=== PATIENT | male | born 1940 | race Caucasian/White ===

== ENCOUNTER 2024-05-20 15:07 | Inpatient (IN) | payer OTHER ==
[~2024-05-20] VITALS: Ht 172.7 cm; Wt 78.0 kg
[2024-05-20] MEDS ORDERED: Aspir 8181 MG PO (15:09)
[2024-05-20] MEDS ORDERED: Dose Adjust by Pharmacy XX STA (15:14)
[2024-05-20] MEDS ORDERED: Heparin Sodium,Porcine/0.5 NS 500 ML IV SCH (15:15)
[2024-05-20 15:30] VITALS: BP 123/90
[2024-05-20] MEDS ORDERED: AMLO5 PO ×2 (15:33→15:39)
[2024-05-20] MEDS ORDERED: Crestor40 MG PO (15:38)
[2024-05-20] MEDS ORDERED: LISI20 PO (15:38)
[2024-05-20] MEDS ORDERED: ROSUVASTATIN CA20 MG PO (15:40)
[2024-05-20] MEDS ORDERED: Metoprolol Tartrate 1 MG/ML 5 ML VIAL IV STA (15:48)
[2024-05-20] MEDS ORDERED: Acetaminophen 325 MG TABLET PO PRN (15:50)
[2024-05-20] MEDS ORDERED: FLU VACC TS2024-25(6MOS UP)/PF 45 MCG/0.5 ML SYRINGE IM SCH (15:50)
[2024-05-20] MEDS ORDERED: Ondansetron HCl 2 MG / ML 2ML Vial IV PRN (15:50)
[2024-05-20] MEDS ORDERED: NS 1,000 ML IV SCH (15:55)
[2024-05-20] MEDS ORDERED: Metoprolol Succinate 50 MG TABCR PO SCH (17:00)
[2024-05-20 17:05] VITALS: BP 132/98
[2024-05-20 17:15] LABS: Anti-Xa UFH, PHA Monitoring 0.65 IU/mL
[2024-05-20] MEDS ORDERED: Metoprolol Tartrate 25 MG Tab PO SCH ×2 (18:00→19:00)
[2024-05-20 19:12] VITALS: BP 94/67
--- NOTE | 2024-05-20 20:06 | NUR ---
CALLED CARDIOLOGY- PT HR REMAINS 130'S ON TELE AFIB. SBP IS 94. SPOKE TO DR HENRY AND HE ORDERED A 150 MG BOLUS OF IV AMIODORONE WELL AN AMIODORONE DRIP. THIS REQUIRES TRANSFER TO PCU. SPOKE TO RUG DYER AND PT IS GOING TO TRANSFER TO PCU 19.
[2024-05-20 20:51] LABS: Adenovirus F 40/41 Not Detected (NOT DETECT); Astrovirus Not Detected (NOT DETECT); Campylobacter Sp Not Detected (NOT DETECT); Cryptosporidium Not Detected (NOT DETECT); Cyclospora Cayetanensis Not Detected (NOT DETECT); E. Coli O157 Not Detected (NOT DETECT); Entamoeba Histolytica Not Detected (NOT DETECT); Enteroaggregative E. coli-EAEC Not Detected (NOT DETECT); Enteropathogenic E. coli-EPEC Not Detected (NOT DETECT); Enterotoxigenic E. coli-ETEC Not Detected (NOT DETECT); Giardia Lamblia Not Detected (NOT DETECT); Norovirus GI/GII Not Detected (NOT DETECT); Plesiomonas Shigelloides Not Detected (NOT DETECT); Rotavirus A Not Detected (NOT DETECT); Salmonella Sp Not Detected (NOT DETECT); Sapovirus Not Detected (NOT DETECT); Shiga Toxin-prod E. coli-STEC Not Detected (NOT DETECT); Shigella/Enteroin E. coli-EIEC Not Detected (NOT DETECT); Vibrio Cholerae Not Detected (NOT DETECT); Vibrio Sp Not Detected (NOT DETECT); Yersinia Enterocolitica Not Detected (NOT DETECT)
--- NOTE | 2024-05-20 21:00 | NUR ---
TRANSFER REPORT RECEIVED FROM MEDICAL FLOOR RN. PATIENT TRANSFERRED TO PCU 19. ARRIVES TO PCU ROOM WITH HEPARIN GTT INFUSING PER ORDER. FLUIDS BROUGHT WITH PATIENT. AMIO BOLUS AND THEN GTT INITIATED PER EMAR. ALERT AND ORIENTED x4. BP STABLE. PATIENT ON 3-4L NC, SPO2 LOW TO MID 90s. DENIES OXYGEN USE AT HOME. TELE AFIB 100-120s. REPORTING NAUSEA AND ABDOMINAL PAIN ON ARRIVAL, PER REPORT PATIENT MEDICATED PRIOR TO TRANSFER. GI PANEL COLLECTED AND PENDING. PATIENT ORIENTED TO PCU ROOM.
[2024-05-20] MEDS ORDERED: Metoclopramide HCl 5MG / ML 2ML Vial IV PRN ×2 (21:20)
[2024-05-20 23:39] VITALS: BP 101/69
[2024-05-20] MEDS ORDERED: Clarify Drug Order XX ONE (23:55)
[2024-05-21] VITALS (9 sets, daily range): BP systolic 95–123; BP diastolic 55–86
--- NOTE | 2024-05-21 | NUR ---
UPDATE RESIDENT MADE AWARE OF PATIENT'S CDIFF+ LAB RESULTS. PATIENT STATED THAT ABDOMINAL PAIN AND NAUSEA HAS SUBSIDED SINCE MEDICATION ADMINISTRATION BUT REPORTS THAT HE HAS HAD DIARRHEA "FOR DAYS" PRIOR TO BEING SEEN IN [place]. NO NEW ORDERS PER RESIDENT D/T CDIFF TOXIN LAB PENDING AT THIS TIME.
[2024-05-21 04:05] LABS: Hematocrit 35.7 % (37.0-53.0); Hemoglobin 12.3 g/dL (13.5-17.5); Mean Corpuscular HGB 31.5 pg (26.0-34.0); Mean Corpuscular HGB Conc 34.5 g/dL (31.5-36.5); Mean Corpuscular Volume 92 fL (80-100); Mean Platelet Volume 10.9 fL (9.1-12.4); Platelet Count 115 K/mm3 (150-400); RDW Coefficient Variation 12.9 % (11.7-14.2); RDW Standard Deviation 42.4 fL (35.1-46.3); White Blood Cell Count 8.76 K/mm3 (4.00-11.30)
[2024-05-21 04:19] LABS: Bun/Creatinine Ratio 31.4 (12.0-20.0); Calcium, Blood 7.8 mg/dL (8.5-10.1); Creatinine, Blood 1.37 mg/dL (0.60-1.20); Potassium, Blood 4.5 mmol/L (3.5-5.5)
--- NOTE | 2024-05-21 05:24 | NUR ---
SHIFT SUMMARY PATIENT ALERT, ORIENTED x4. ABLE TO MAKE NEEDS KNOWN TO STAFF. BP STABLE. TELE READING AFIB 100s. AMIO GTT INFUSING PER EMAR. ON 3-4L NC WITH SPO2 LOW TO MID 90s. PATIENT AMBULATING TO BATHROOM WITH MINIMAL ASSISTANCE. NO DIARRHEA SINCE TRANSFER TO PCU. NO OTHER CHANGES SINCE PREVIOUS NOTES, WILL REPORT TO DAY SHIFT RN.
[2024-05-21] MEDS ORDERED: Clarify Drug Order XX ONE (05:45)
[2024-05-21] MEDS ORDERED: Lisinopril 20 MG Tab PO SCH (09:00)
[2024-05-21] MEDS ORDERED: Rosuvastatin Calcium 10 MG Tab PO SCH (09:00)
[2024-05-21] MEDS ORDERED: Aspirin 81 MG TabEC PO SCH (09:00)
[2024-05-21] MEDS ORDERED: Apixaban 5 MG Tab PO SCH (10:35)
--- NOTE | 2024-05-21 13:02 | NUR ---
DR. BATES NOTIFIED OF PT CONVERTING FROM AFIB TO SR. HE WILL SEE THE PT SOON.
[2024-05-21] MEDS ORDERED: Amiodarone HCl 200 MG Tab PO SCH (13:15)
[2024-05-21] MEDS ORDERED: Furosemide 10 MG/ML 4ML Vial IV STA (15:04)
--- NOTE | 2024-05-21 17:07 | NUR ---
END OF SHIFT SUMMARY THE PT IS A&OX4, IND WITH TRANSFER BUT NEEDS ASSISTANCE WITH LINE MANAGEMENT, AND HE MAKES HIS NEEDS KNOWN. THE PT WAS ON AN AMIO GTT THIS MORNING AND AN ADDITIONAL BOLUS WAS GIVEN PER DR. BATES, THE PT ENDED UP CONVERTING TO SR 70'S AROUND [address] FIGUEREDO STARTED THE PT ON PO AMIO. * AMIO 400MG BID X 5 DAYS THEN 2OOMG DAILY AFTER. * HIS HEPARIN WAS DISCONTINUED THIS MORNING AND HE WAS STARTED ON ELIQUIS 5MG BID. * THE PT WILL NEED TO STOP HIS ELIQUIS 05/26 (5 DAYS BEFORE TAVR/CABG) * *AT DISCHARGE THE PT WILL RESUME HIS HOME ZESTRIL AND START 1OMG JARDIANCE DAILY PER DR. BATES* BP REMAINS STABLE. THE PT DENIES SOB, BUT IS REQUIRING OXYGEN TO MAINTAIN SP02 >93%. HE HAS BEEN TITRATED TODAY BETWEEN 1L NC AND 6LNC. WHILE THE PT SLEEPS HE HAS BEEN REQUIRING 4-6L'S NC. THIS AFTERNOON THIS RN AMBULATED THE PT AROUND THE FLOOR AND HE NEEDED 2L NC TO MAINTIAN SP02 >93%. AFTER THE WALK HE WAS VERY TIRED AND HAS BEEN TAKING A NAP. HIS SISTER AND VISITED AND WERE UPDATED ON CARE. COLLECTIVE BARGAINING SPECIALIST HAS CLEARED THE PT FOR DISCHARGE; DR. BRANDAN LEON. ECHO COMPLETED. SEE NOTES FOR UPDATES.
[2024-05-21] MEDS ORDERED: Lactobacil 2-S.Thermo-Bifido 1 1 Cap PO SCH (21:00)
[2024-05-22 00:37] VITALS: BP 132/70
[2024-05-22 03:52] VITALS: BP 112/62
[2024-05-22 04:16] LABS: Hematocrit 35.9 % (37.0-53.0); Hemoglobin 12.5 g/dL (13.5-17.5); Mean Platelet Volume 11.4 fL (9.1-12.4); Platelet Count 130 K/mm3 (150-400)
--- NOTE | 2024-05-22 04:24 | NUR ---
SHIFT SUMMARY PT REMAINS A/0X4. VSS ON 5L NC >92%. UNABLE TO TITRATE DOWN THROUGHOUT NIGHT. PT HAD X1 LIQUID BROWN BM. CONTINUES TO HAVE CONSTANT NAUSEA, PRNs GIVEN WITH MODERATE RELIEF. PT HAS ABDOMINAL PAIN DESCRIBED ACHING. PRN TYLENOL AND MORE REGLAN GIVEN AT THAT TIME WITH GOOD RELIEF. PT AMBULATING TO BATHROOM WITH SBA. NO FURTHER QUESTIONS OR CONCERNS AT THIS TIME. WILL CONTINUE WITH PLAN OF CARE.
[2024-05-22 04:32] LABS: Bun/Creatinine Ratio 42.6 (12.0-20.0); Calcium, Blood 8.2 mg/dL (8.5-10.1); Creatinine, Blood 1.01 mg/dL (0.60-1.20); Potassium, Blood 3.9 mmol/L (3.5-5.5)
[2024-05-22 07:41] VITALS: BP 124/69
[2024-05-22] MEDS ORDERED: Vancomycin HCl 125 MG Cap PO SCH (10:00)
[2024-05-22 11:54] VITALS: BP 127/65
[2024-05-22 16:30] VITALS: BP 128/69
[2024-05-22] MEDS ORDERED: Potassium Chloride 10 Meq Tablet SA PO SCH (17:00)
[2024-05-22] MEDS ORDERED: Furosemide 10 MG/ML 4ML Vial IV SCH (18:00)
--- NOTE | 2024-05-22 18:41 | NUR ---
SHIFT SUMMARY: NEURO: PT A&OX4. FOLLOWS COMMANDS AND MAKES NEEDS KNOWN TO STAFF. CARDIAC: NO ACUTE CHANGES HAPPENED DURING SHIFT. DENIES ANY CP, PRESSURE OR TIGHTNESS. RESP: PT ON 5L NC, MAINTAINING O2 SATS >90%. REPORTS SOB WITH EXERTION. GI/: PT REPORTS FEELING NAUSIOUS OFF AND ON TODAY THAT WAS MOSTLY RESOLVED WITH REGLAN. PT EXPRESSED THIS AFTERNOON THAT HIS NAUSEA INCREASES WITH MOVEMENT, LOOKING AROUND AND WITH ACTIVITY. PT ALSO REPORTED A SLIGHT HEADACHE. PROVIDER NOTIFIED AND NO NEW ORDERS WERE GIVEN. NO SIGNIFICANT EVENTS HAPPENED DURING THIS SHIFT. WILL CONTINUE TO CARE FOR PT TILL END OF SHIFT.
[2024-05-22 19:45] VITALS: BP 113/95
--- NOTE | 2024-05-22 22:43 | NUR ---
PT REMAINS A&OX4. VSS ON 5L NC >92%. NO SOB AT REST HOWEVER BECOMES TACHYPNEIC UPON EXERTION. REMAINS ON TELE NSR 70s-80s. PT HAS NO C/O PAIN AT THIS TIME. CONTINUES TO HAVE LOOSE STOOLS. PO VANCO CONTINUED PER EMAR. PT HAS NO NAUSEA AT THIS TIME. PT USING CALL LIGHT APPROPRIATELY. SBA TO BATHROOM. PT TRANSFERRING TO MEDICAL UNIT FOR FURTHER CARE. REPORT GIVEN TO NURSE DALEY.
[2024-05-23] VITALS (7 sets, daily range): BP systolic 100–140; BP diastolic 63–81
[2024-05-23 05:53] LABS: Hematocrit 36.5 % (37.0-53.0); Hemoglobin 12.7 g/dL (13.5-17.5); Mean Corpuscular HGB 31.4 pg (26.0-34.0); Mean Corpuscular HGB Conc 34.8 g/dL (31.5-36.5); Mean Corpuscular Volume 90 fL (80-100); Mean Platelet Volume 10.8 fL (9.1-12.4); Platelet Count 144 K/mm3 (150-400); RDW Coefficient Variation 12.9 % (11.7-14.2); RDW Standard Deviation 42.3 fL (35.1-46.3); Red Blood Cell Count 4.05 M/mm3 (4.30-5.90); White Blood Cell Count 8.45 K/mm3 (4.00-11.30)
--- NOTE | 2024-05-23 06:33 | NUR ---
SHIFT SUMMARY PT ADMITTED FOR NEW ONSET AFIB. PT IS ALERT AND ORIENTED TIMES 4. PT IS INDEPENDENT AND ABLE TO AMBULATE AROUND ROOM AND TO TOILET. PT IS ABLE TO MAKE NEEDS KNOWN TO STAFF. 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 PT IS ON 7L O2. PT IS NOT ON OXYGEN ASSIST WHILE AT HOME. PT HAS LOWER RIGHT EXTREMITY SKIN TEAR FROM GOLF. PT TAKES MEDS WHOLE WITH WATER AND IS ON A CARDIO DIET. PT IS SCHEDULED FOR CABBAGE AND TVAR PROCEDURE 05/31/24. PT WILL NEED TO STOP TAKING ELIQUIS ON 05/26/24 PRIOR TO PROCEDURE. PT HAS EJECTION FACTION OF 40-45%. PT S BED IS IN LOW POSITION, CALL LIGHT WITHIN REACH, AND RAILS ARE TIMES 3.
[2024-05-23 07:20] LABS: Bun/Creatinine Ratio 39.3 (12.0-20.0); Calcium, Blood 8.3 mg/dL (8.5-10.1); Creatinine, Blood 0.97 mg/dL (0.60-1.20); Potassium, Blood 3.8 mmol/L (3.5-5.5)
[2024-05-23] MEDS ORDERED: Digoxin 0.25 MG/ML 2ML Amp IV ONE (09:10)
[2024-05-23] MEDS ORDERED: Digoxin 0.5 MG in NS 8 ML IV ONE (09:25)
[2024-05-23] MEDS ORDERED: NS 250 ML IV PRN (11:50)
[2024-05-23] MEDS ORDERED: Digoxin 0.25 MG/ML 2ML Amp IV SCH (15:00)
[2024-05-23] MEDS ORDERED: Digoxin 0.25 MG in NS 4 ML IV SCH (16:00)
--- NOTE | 2024-05-23 18:05 | NUR ---
SHIFT SUMMARY PT CONT LEVEL OF CARE. PT NOTED TO CONVERT TO AFIB WITH RVR AROUND 0840 THIS SHIFT. PT DENIED CHEST PAIN, SOB, OR FEELINGS OF HEART RACING. CARDIOLOGY WAS CALLED AND GAVE ORDERS. SEE MAR FOR DETAILS. TELE CALLED THIS NURSE AROUND 1300 THIS SHIFT AND STATED THAT PT HAD CONVERTED BACK TO SR HR 81. CARDIOLOGY WAS CALLED AGAIN AND DC THE ORDERS FOR DIGOXIN. PT WAS TITRATED DOWN FROM 7L THIS SHIFT TO 2L WITH O2 MAINTAINING IN LOW 90S. DSG CHANGE DONE TO RLE THIS SHIFT PER ORDERS. PLAN IS FOR PT TO POSSIBLE GO HOME TOMORROW PENING IF HE STAYS IN SR.
--- NOTE | 2024-05-24 03:41 | NUR ---
FISH EGG PACKER SUMMARY VSS. ALERT AND ORINETED. COOPERATIVE WITH CARE. UP AD SURENDRA. ABLE TO REPOSITION SELF IN BED WITHOUT ASSIST FOR COMFORT. MED TELE SR WITH BBB IN THE 70'S. DENIED DISTRESS WHEN ASKED. HAS BEEN RESTING QUIETLY WITH FEW INTERRUPTIONS. CALL LIGHT IN REACH. RAILS UP X 2 AND BED IN LOW POSITION FOR SAFETY. REMAINS ON CONTACT ISOLATION PRECAUTIONS FOR D-DIFF. PO VANCO ADMIN ORDERED - SEE MAR FOR DETAILS. [facility]
[2024-05-24 03:45] VITALS: BP 136/67
[2024-05-24 07:24] VITALS: BP 135/69
[2024-05-24 10:41] LABS: Bun/Creatinine Ratio 43.9 (12.0-20.0); Calcium, Blood 8.6 mg/dL (8.5-10.1); Creatinine, Blood 0.93 mg/dL (0.60-1.20); Potassium, Blood 3.3 mmol/L (3.5-5.5)
[2024-05-24 11:12] VITALS: BP 134/78
[2024-05-24] MEDS ORDERED: Amiodarone HCl200 MG PO (11:37)
[2024-05-24] MEDS ORDERED: ELIQUIS5 M2 PO (11:39)
[2024-05-24] MEDS ORDERED: VANCOCIN HCL125 MG PO (11:40)
[2024-05-24] MEDS ORDERED: JARDIANCE10 MG PO (11:40)
[2024-05-24] MEDS ORDERED: VISBIOME 112.51 EACH PO (11:40)
--- NOTE | 2024-05-24 12:53 | NUR ---
DISCHARGE NOTE PT DISCHARGED TO HOME, PICKED UP BY HIS . IV REMOVED. TELE RETURNED. MEDICATIONS FAXED TO THE PHARMACY OF HIS CHOICE. DISCHARGE INFORMATION REVIEWED AND PROVIDED TO THE PT. PERSONAL BELONGINGS RETURNED.
== END 2024-05-24 12:42 | disposition home or self-care (01) | DRG 280 ==
LOC: PCU 15:07 → MEDS 15:07 → PCU 20:35 → MEDS 05-22 23:11
PROVIDERS: Internal Medicine; ADMIT Family Medicine
DX: I48.91 Unspecified atrial fibrillation (principal); I50.31 Acute diastolic (congestive) heart failure; I21.A1 Myocardial infarction type 2; J96.01 Acute respiratory failure with hypoxia; J18.9 Pneumonia, unspecified organism; A04.72 Enterocolitis due to Clostridium difficile, not specified as recurrent; I10 Essential (primary) hypertension; E78.5 Hyperlipidemia, unspecified; I35.0 Nonrheumatic aortic (valve) stenosis; I25.10 Atherosclerotic heart disease of native coronary artery without angina pectoris; F12.90 Cannabis use, unspecified, uncomplicated; D69.6 Thrombocytopenia, unspecified; I44.7 Left bundle-branch block, unspecified; I11.0 Hypertensive heart disease with heart failure; E87.6 Hypokalemia; Z95.5 Presence of coronary angioplasty implant and graft; Z95.2 Presence of prosthetic heart valve; Z95.1 Presence of aortocoronary bypass graft; Z90.49 Acquired absence of other specified parts of digestive tract; Z79.82 Long term (current) use of aspirin; Z79.899 Other long term (current) drug therapy; Z79.811 Long term (current) use of aromatase inhibitors; Z87.891 Personal history of nicotine dependence
CPT/HCPCS: 36415; 71046; 80048; 83880; 84484; 85014; 85018; 85027; 85049; 85520; 85730; 87324; 87507; 93005; 93010; 93306; 94762; A9270; J0282; J1160; J1644; J1940; J2405; J2765; J7030; J7060